=== PATIENT | male | born 1995 | race Caucasian/White ===

== ENCOUNTER 2020-04-13 14:58 | Observation (INO) | payer MEDICAID, SELFPAY ==
[2020-04-13 15:02] VITALS: BP 147/100; PULSE 120; RESP 18; TEMP 36.9; O2SAT 97; BMI 19.5
--- NOTE | 2020-04-13 15:20 | ED.DCSUM_ITS ---
- ER Visit Summary Date of Service: 04/13/20 Chief Complaint: Detox History of Present Illness: The patient is a 25 M who presents for detox from fentanyl. Patient states he normally snorts fentanyl. Patient states his last use was approximately 32 hours prior to arrival. Patient states that currently he is having some generalized fatigue. Patient states he has been having some hot and cold flashes and some occasional diaphoresis. Patient denies any fevers. Patient denies any chest pain. Patient admits to some nausea and vomiting yesterday. Physical Examination: Vital signs are stable except for mild tachycardia of 120. Patient is afebrile. Patient is in no acute distress. Oral mucosa is pink and moist. Neck is supple. Trachea is midline. There is no JVD. Heart was regular and tachycardic. Lungs are clear and equal bilaterally. Abdomen is soft. Bowel sounds are normal. There is no tenderness. Cranial nerves II through XII are intact. There are no focal motor or sensory deficits. Extremities are intact. There is no calf tenderness or edema. Test Results: CBC and metabolic profile were obtained and were within normal limits. Urine tox screen was positive for opiates, amphetamines, methamphetamines, benzodiazepines, and cannabinoids. Serum alcohol level was normal. Emergency Department Course and Treatment: Patient was given IV fluids here. Case was discussed with the hospitalist. He will admit the patient to his service. Patient and family understood and were agreeable with the plan. All questions were answered. Disposition: Admit to hospital Impression: 1. Opiate withdrawal This note was generated with [employer] dictation software. It may contain incorrect words, spelling, and punctuation that were not noted in review of the chart prior to signing ED Disposition - Plan for ED Patient: Disposition: Acute Care Hospital [facility] Diagnosis: Opiate withdrawal
[2020-04-13 15:57] VITALS: BP 140/117; PULSE 101; RESP 18; TEMP 36.9; O2SAT 97
--- NOTE | 2020-04-13 16:00 | PCM.HP.STD ---
History of Present Illness Date of Admission: 04/13/20 Chief Complaint: Fentanyl detox The patient is a 25 year old M with a PMH as below who presents for fentanyl detox. His last use was 32 hours ago. He generally snorts his fentanyl and he says that he is never injected. He has not used any other drugs other than tobacco and he does not want a nicotine patch. He is from [facility] and this was the only facility that was available for detox. He says that he is usually able to detox at home alone, and he is done at around 5 times, however this time was different. He does have a bed available at [facility] once he completes detox. He is little bit resistant about going into [facility] and we did have an extensive discussion how that would be the best thing for him. He also states that he has had an allergic reaction to Suboxone but has taken Subutex without issue. Past Medical History Allergies buprenorphine [From Suboxone] Allergy (Verified 04/13/20 15:00) Angioedema naloxone [From Suboxone] Allergy (Verified 04/13/20 15:00) Angioedema Home Medications: Ambulatory Orders Medication Instructions Recorded NK 04/13/20 Surgical History: no surgical history Smoking Status: Current every day smoker Tobacco Use: Cigarettes Alcohol: None Drugs: None - *Family History Maternal History Items: Cancer Paternal History Items: No pertinent history Review of Systems Constitutional: Reports: Fatigue. Denies: Chills, Fever, Weight Change HEENT: Denies: Head Aches, Sinus Congestion, Sinus Drainage Cardiovascular: Denies: Chest Pain, Palpitations Respiratory: Denies: Cough, Shortness of breath at rest, Sputum production Gastrointestinal: Denies: Abdominal Pain, Nausea, Vomiting Genitourinary: Denies: Dysuria Musculoskeletal: Denies: Joint Pain, Joint Tenderness Skin: Denies: Rash, Wounds Neurological: Denies: Numbness, Tingling, Focal weakness Psychiatric: Denies: Anxiety, Depression Hematologic/ Lymphatic: Denies: Easy Bruising, Easy Bleeding VTE Information - Inpt Only VTE Present on Admission: No Patient Problems: Active and Suspected Problems Opiate withdrawal (Acute) - Physical Exam Vitals/I&O's: Vital Signs Temp Pulse Resp BP Pulse Ox 98.4 F 101 H 18 140/117 H 97 04/13/20 15:57 04/13/20 15:57 04/13/20 15:57 04/13/20 15:57 04/13/20 15:57 Oxygen Delivery Method Room Air Weight: 140 lb 6.951 oz Body Mass Index (BMI) 19.5 General: Alert, Oriented x3, Cooperative, No apparent distress HEENT: Atraumatic, PERRLA, EOMI, Normocephalic Oral: Moist Mucosa Neck: Supple, No JVD Lungs: Clear to auscultation, Normal air movement, No rhonchi, No wheeze, No rales Cardiovascular: Regular rate, Regular Rhythm, Normal S1, Normal S2, No murmurs Abdomen: Soft, Non Tender, Non-Distended, No Hepato-splenomegaly Extremities: No edema, Capillary Refill Less than 3 Seconds Skin: No rashes, No breakdown Neurological: Neuro grossly intact, Sensory exam intact to light touch and pain Psych/Mental Status: Restless Current Medications Sodium Chloride () 1,000 mls @ 1,000 mls/hr IV .Q1H ONE Stop: 04/13/20 16:18 Last Admin: 04/13/20 16:00 Dose: Not Given Documented by: Assessment/Plan All Active Problems Opiate withdrawal (Acute) 1. Fentanyl detox -Last use was 32 hours ago, he says that he only ever snorts and that the 2 people he was able to get fentanyl from, 1 of them is in jail and the other one is going to rehab, both of whom are his brothers -Continue with opioid detox, he states that he has taken Subutex in the past without issue -Plan will be to discharge to [facility] 2. Tobacco abuse -Discussed cessation -He does not want a nicotine patch DVT: Low risk Inpatient E&M: 25153 Init Hosp L2
[2020-04-13 16:10] LABS: Bacteria 0 SEEN /hpf (None Seen); Red Blood Cells-Urine 0 SEEN /hpf (0-5); Squamous Epithelial Cells - UA 0 SEEN /hpf (0-5)
[2020-04-13 16:17] LABS: Color, Urine Yellow (Yellow); Glucose, Dipstick Normal (Normal); Leukocyte Esterase-Dipstick 25 /ul (Negative); Nitrite-Dipstick Negative (Negative); Occult Blood-Urine Negative /ul (Negative); Protein-Dipstick 30 mg/dl (Negative); Urine Clarity Clear (Clear); Urine Urobilinogen 4 mg/dl (Normal)
[2020-04-13 16:18] LABS: Urine Bilirubin Dipstick 1 mg/dL (Negative)
[2020-04-13 16:19] LABS: Absolute Lymphocyte Count 1.02 X10^3/uL (0.83-4.51); Absolute Neutrophil Count 11.6 X10^3/uL (2.0-7.7); Basophil# 0.05 X10^3/uL; Basophil% 0.4 % (0-1); Eosinophil# 0.01 X10^3/uL; Eosinophils% 0.1 % (0-5); Hematocrit 41.7 % (40-54); Hemoglobin 14.4 g/dL (13.0-16.5); Ketone-Dipstick 150 mg/dl (Negative); Lymphocyte # 1.02 X10^3/ul (4.0); Lymphocyte % 7.7 % (19-41); Mean Corp Hgb Conc 34.5 g/dL (32-36); Mean Corpuscular Hgb 31.4 pg (27.0-32.0); Mean Corpuscular Volume 90.8 fL (80-94); Mean Platelet Vol. 9.6 fl (6.2-12.0); Monocyte# 0.51 X10^3/uL; Monocyte% 3.9 % (0-10); NRBC Flagged by Analyzer 0 % (0-5); Neutrophil # 11.57 X10^3/uL (2.7-7.7); Neutrophil % 87.5 % (47-70); Platelet Count 405 K/mm3 (150-450); RBC Distribution Width CV 12.3 % (11.6-14.6); RBC Distribution Width SD 40.4 fl (35.1-43.9); Red Blood Count 4.59 M/mm3 (4.6-6.2); White Blood Count 13.2 K/mm3 (4.4-11.0)
[2020-04-13 16:28] LABS: Hyaline Cast 10-25 SEEN /lpf (0-5); Mucous, Urine 3+ /hpf (<or=2+); White Blood Cells 0-5 SEEN /hpf (0-5)
[2020-04-13 16:29] LABS: ALB/GLOB Ratio 1.3 RATIO (0.9-2.4); AST(SGOT) 15 U/L (15-37); Alanine Aminotransfer ALT/SGPT 31 U/L (16-61); Albumin, Serum 4.8 g/dL (3.2-5.0); Alkaline Phosphatase 59 U/L (45-117); Anion Gap 11 (5-15); BUN 14 mg/dL (7-18); BUN/Creat Ratio 18.9 RATIO (10-20); Calcium,Total 9.8 mg/dL (8.5-10.1); Chloride 101 mmol/L (98-107); Creatinine, Serum 0.74 mg/dL (0.70-1.30); EST Glomerular Filtration Rate 135 mL/min (>60); Est Glom Filt Rate - Afr Amer 163 mL/min (>60); Globulin 3.7 g/dL (2.2-4.2); Glucose 107 mg/dL (74-106); Potassium 3.6 mmol/L (3.5-5.1); Protein, Total 8.5 g/dL (6.4-8.2); Sodium Level 139 mmol/L (136-145)
[2020-04-13 16:34] LABS: Amphetamine Urine VISTA POSITIVE (<1000 ng/mL); Barbiturate Urine VISTA NEGATIVE (< 200 ng/mL); Benzodiazepine Urine VISTA POSITIVE (< 200 ng/mL); Cocaine Urine VISTA NEGATIVE (< 300 ng/mL); Ecstacy Urine VISTA POSITIVE (< 500 ng/mL); Methadone Urine VISTA NEGATIVE (< 300 ng/mL); PCP Urine VISTA NEGATIVE (< 25 ng/mL); THC Urine VISTA POSITIVE (< 50 ng/mL); Vista UDS pH Range 6
[2020-04-13 16:41] LABS: Alcohol, Blood (Medical)-Serum < 3.0 mg/dL
[2020-04-13 17:04] VITALS: BP 128/75; PULSE 97; RESP 16; TEMP 36.8; O2SAT 98
[2020-04-13 17:09] VITALS: BMI 19.8
[2020-04-13 17:11] VITALS: BMI 19.8
--- NOTE | 2020-04-13 17:39 | NURSING ---
spoke with pt about allergies. pt states that when he took suboxone previous that his tongue had swollen. Asked pt if he had ever taken Buprenorphine (subutex) and pt states that he had taken this med before and had no reaction with it. Asked pt if he had ever OD pt states no; Asked if pt had ever taken Narcan before and pt states no. pt states that he will be fine doing the subutex taper for withdrawal.
[2020-04-13] MEDS: Methocarbamol 750 MG Tablet 1500 MG PO (17:42)
[2020-04-13] MEDS: Buprenorphine HCl 2 MG TAB.SUBL 4 MG SL (17:43)
--- NOTE | 2020-04-13 19:02 | NURSING ---
Upon taking over for this patient, this RN asked pt if he would need a nicotene patch. Pt reports that he would as he smokes 10cigarrets per day and was under the impression that he would be able to go outside and smoke. Pt reports needing subutex, as he has had it before and it was beneficial (despite fact it is listed as allergy on chart- due to reported angioedema with use of suboxone. Patient given subutex and methocarbamol and then denied need for further intervention. Noticed that patient admitted to using only fentanyl and cigarettes. Pt aware that drug screen was positive for many more other drugs, amphetamine, meth, benzos and cannabis and states that they must have been cut into the fentanyl. Pt did receive dinner and shortly afterward code blue alarm was going off for this patient's room. Staff ran into room, including this RN. Patient standing in room. This RN asked patient why he pushed button. (pt had previously been educated on way to contact staff minutes earlier.) He states that he bumped the call light with his elbow and that when no one came he thought that he needed that button. Notified patient that he was not to use the buttons on the wall. Pt verbalized understanding. This RN went in to check on patient again prior to shift change and upon entry noted that his gown and pants were wadded up on bed and patient was dressed in street clothes stuffing papers in his pockets. Pt had opened his own totes and removed all items. He looked out the window and states that his grandma is directly below and that he has to go out to her. Notified patient that we have people downstairs that can run items. Pt then states that it looks like he is going to go ahead and leave then. This RN asked pt to sign papers- he did so and left unit.
== END 2020-04-13 19:00 | disposition home or self-care (01) ==
LOC: ED 15:46 → MS3 04-14 08:09
PROVIDERS: Admitting Provider Family Medicine; Emergency Provider Emergency Medicine; Visit Provider Family Medicine
DX: F11.23 Opioid dependence with withdrawal (principal); F17.210 Nicotine dependence, cigarettes, uncomplicated
CPT/HCPCS: 80053; 80307; 80320; 81001; 85025; 99218; 99282; G0378; G0480